=== PATIENT | male | born 1990 | race Caucasian/White ===

== ENCOUNTER 2017-12-23 06:49 | Emergency (ER) | payer BC ==
--- NOTE | 2017-12-23 06:55 | EDM.PDOC ---
ED HPI GENERAL MEDICAL PROBLEM - General Chief Complaint: General Stated Complaint: Right hand cramping, nausea, emesis Time Seen by Provider: 12/23/17 06:50 Source of Information: Reports: Patient. Denies: Old Records ([facility] chart/EMR) History Limitations: Reports: No Limitations - History of Present Illness INITIAL COMMENTS - FREE TEXT/NARRATIVE: The patient was brought to the emergency room via basic ambulance transport with sorter pricer giving the patient 4 baby aspirin chew and swallow, applying O2 with a nonrebreather mask, and performing an EKG prior to patient's arrival to this facility. At about 03:30 a.m. patient began experiencing some sudden onset hyperventilation, dizziness, and right hand cramping with some additional secondary nausea and 2 episodes of emesis prior to arrival. The patient has been drinking plenty of fluids and trying to lose weight over the last 6 months and is apparently taking 2 different types of unknown diet pills through his claims correspondence clerk. The patient denies any chest pain/pressure, heart flutter, dizziness, orthostasis, orthopnea, diaphoresis, paresthesias, recent decreased exercise tolerance, or any other anginal-type symptoms. No recent history of abdominal pain, heartburn, diarrhea, melena, gross hematochezia, or any food intolerance, including fatty foods, etc.. The patient also denies any recent fever, cough, wheezing, dyspnea, etc.. Onset: Today, Gradual Onset Date: 12/23/17 Onset Time: 03:30 Duration: Constant, Getting Worse Location: Reports: Upper Extremity, Right. Denies: Head, Face, Neck, Chest, Abdomen, Back, Pelvis, Upper Extremity, Left, Lower Extremity, Left, Lower Extremity, Right, Radiates to Quality: Reports: Other (Cramping) Severity: Severe Improves with: Reports: None Worsens with: Reports: None Context: Reports: Other (As above) Associated Symptoms: Reports: Nausea/Vomiting (As above). Denies: Confusion, Chest Pain, Cough, Diaphoresis, Fever/Chills, Headaches, Loss of Appetite, Seizure, Shortness of Breath, Syncope, Weakness Treatments LEAD APPLICATIONS DEVELOPER: Reports: Aspirin, EKG, Oxygen Right Hand Pain Score (Numeric/FACES): 10 (Patient relates 100/10) - Related Data Allergies Allergy/AdvReac Type Severity Reaction Status Date / Time No Known Allergies Allergy Verified 12/23/17 07:27 Home Meds: Home Meds . [No Known Home Meds] 12/23/17 [History] Past Medical History HEENT History: Reports: Impaired Vision, Other (See Below). Denies: Allergic Rhinitis, Cataract, Glaucoma, Hard of Hearing, Macular Degeneration, Otitis Media, Retinal Detachment Other HEENT History: Patient wears soft contact lenses and glasses Cardiovascular History: Reports: None. Denies: Afib, Aneurysm, Arrhythmia, Blood Clots/VTE/DVT, CAD, Heart Murmur, High Cholesterol, Hypertension, NH, Syncope Respiratory History: Reports: Asthma, Intubation, Previous, Sleep Apnea, Other ( See Below). Denies: Bronchitis, Recurrent, COPD, PE, Pneumonia, Recurrent, Pneumothorax Other Respiratory History: Patient with exercise-induced asthma with no current therapy. Sleep apnea with patient noncompliant with his CPAP Gastrointestinal History: Reports: Other (See Below). Denies: Celiac Disease, Cholelithiasis, Chronic Constipation, Chronic Diarrhea, Gastritis, GERD, GI Bleed, Hepatitis, Inflammatory Bowel Disease, Irritable Bowel Syndrome, Jaundice , Pancreatitis Other Gastrointestinal History: LFTs elevation likely secondary to fatty liver apparent previous negative workup through a specialist Genitourinary History: Reports: None. Denies: Acute Renal Failure, BPH, Chronic Renal Insuffiency, Renal Calculus, STD, Urinary Incontinence, UTI, Recurrent Musculoskeletal History: Reports: Arthritis, Back Pain, Chronic, Osteoarthritis. Denies: Amputation, Fracture, Gout, Neck Pain, Chronic, RA, SLE Neurological History: Reports: Headaches, Chronic. Denies: Cerebral Aneurysms, Concussion, CVA, Head Trauma, Migraines, MS, Neuropathy, Peripheral, Parkinson's , Seizure, TIA Psychiatric History: Reports: Addiction, Anxiety, Depression, Other (See Below) . Denies: Abuse, Victim of, ADD, ADHD, Psych Hospitalization(s), PTSD, Suicide Attempt, Suicidal Ideation Other Psychiatric History: Previous history of alcohol abuse and illicit drug use as below Endocrine/Metabolic History: Reports: Obesity/BMI 30+. Denies: Diabetes, Type I , Diabetes, Type II, Diabetes Mellitus, Type 3c, Hypothyroidism, IDDM Hematologic History: Reports: None. Denies: Anemia, Blood Transfusion(s), Iron Deficiency Immunologic History: Reports: None. Denies: AIDS, HIV, SLE Oncologic (Cancer) History: Reports: None. Denies: Basal Cell Carcinoma, Hodgkin's Lymphoma, Lymphoma, Malignant Melanoma, Non-Hodgkin's Lymphoma, Squamous Cell Carcinoma Dermatologic History: Reports: None. Denies: Eczema, Psoriasis - Infectious Disease History Infectious Disease History: Reports: Chicken Pox, MRSA (Recurrent MRSA/ cellulitis). Denies: C-Difficile, Measles, Meningitis, Mononucleosis, Mumps, Pertussis (Whooping Cough), Rheumatic Fever, Rubella, Scarlet Fever, Shingles, VRE - Past Surgical History Head Surgeries/Procedures: Reports: None HEENT Surgical History: Reports: None. Denies: Adenoidectomy, Eye Surgery, Laser Surgery, LASIK, Myringotomy w Tube(s), Naso-Sinus Surgery, Oral Surgery, Tonsillectomy Cardiovascular Surgical History: Reports: None. Denies: Varicose Respiratory Surgical History: Reports: None. Denies: Thoracentesis GI Surgical History: Reports: None. Denies: Appendectomy, Cholecystectomy, Colonoscopy, EGD, Hernia, Abdominal, Hernia, Inguinal, Hernia Repair/Other Male Surgical History: Reports: Circumcision, Other (See Below). Denies: Vasectomy Other Male Surgeries/Procedures: Circumcision as an Endocrine Surgical History: Reports: None. Denies: Thyroid Biopsy Neurological Surgical History: Reports: None. Denies: C-Spine, Discectomy, Laminectomy, Lumbar Spine, Sacral Spine, Spinal Fusion, Vertebroplasty Musculoskeletal Surgical History: Reports: None. Denies: Arthroscopic Procedure , Carpal Tunnel, Ganglion Cyst, Joint Replacement, ORIF, Shoulder Surgery Oncologic Surgical History: Reports: None Dermatological Surgical History: Reports: None - Past Imaging History Past Imaging History: Reports: Ultrasound (Abdominal ultrasound in 2017) Social & Family History - Tobacco Use Smoking Status *Q: Current Every Day Smoker Tobacco Use Within Last Twelve Months: Cigarettes, Snuff/Dip Years of Tobacco use: 14 Packs/Tins Daily: 1 Packs/Tins Daily Comment: The patient started using chewing tobacco and smoking cigarettes at age 13 with current cigarette use of one pack per day and maximum use of 2 packs per day. Patient stopped using chewing tobacco about one month ago with previous use of one half can per day. Used Tobacco, but Quit: No Smoking Cessation Information Provided To Patient: Yes Second Hand Smoke Exposure: Yes Source of Second Hand Smoke Exposure: Roommate smokes Second Hand Smoke Education Provided: Yes - Caffeine Use Caffeine Use: Reports: Soda (1 soda per week). Denies: Coffee, Energy Drinks, Tea - Alcohol Use Alcohol Use History: Yes Days Per Week of Alcohol Use: 0 (Previous history of alcohol abuse between ages 20 and 25) Number of Drinks Per Day: 3 (Beer, mixed drinks, and wine) Total Drinks Per Week: 0 - Recreational Drug Use Recreational Drug Use: Yes Drug Use in Last 12 Months: No Recreational Drug Type: Reports: Marijuana/Hashish (Daily use of marijuana between ages 11 and 19). Denies: Amphetamines (Speed), Cocaine, Dextromethorphan (Cough Syrup), Heroin, Inhalants (Glues, Solvents, Aerosols), LSD (Acid), Methamphetamine, Morphine, Oxycodone - Living Situation & Occupation Living situation: Reports: Single (2 children), Other (Roommate). Denies: Occupation: Employed ([employer]) ED ROS GENERAL - Review of Systems Review Of Systems: ROS reveals no pertinent complaints other than HPI. ED EXAM, GENERAL - Physical Exam Exam: See Below Exam Limited By: No Limitations General Appearance: Alert, WD/WN, Anxious (Moderate to severe), Mild Distress ( Secondary to hyperventilation and muscle cramping) Eye Exam: Bilateral Eye: EOMI, Normal Fundi, Normal Inspection (Contact lenses bilaterally. No nystagmus), PERRL Ears: Normal External Exam, Normal Canal, Hearing Grossly Normal, Normal TMs Nose: Normal Inspection, Normal Mucosa, No Blood, Clear Rhinorrhea Throat/Mouth: Normal Inspection, Normal Lips, Normal Teeth, Normal Gums, Normal Oropharynx, Normal Voice, No Airway Compromise. No: Dysphagia, Perioral Cyanosis Head: Atraumatic, Normocephalic. No: Facial Swelling, Facial Tenderness, Sinus Tenderness Neck: Normal Inspection, Supple, Non-Tender, Full Range of Motion. No: Carotid Bruit, Lymphadenopathy (L), Lymphadenopathy (R), Thyromegaly Respiratory/Chest: No Respiratory Distress, Lungs Clear, Normal Breath Sounds, No Accessory Muscle Use, Chest Non-Tender, Other (Moderate hyperventilation on arrival). No: Pleural Rub, Retractions Cardiovascular: Normal Peripheral Pulses, Regular Rate, Rhythm, No Edema, No Gallop, No JVD, No Murmur, No Rub. No: Gallop/S3, Gallop/S4, Friction Rub Peripheral Pulses: 2+: Radial (L), Radial (R), Dorsalis Pedis (L), Dorsalis Pedis (R) GI/Abdominal: Normal Bowel Sounds, Soft, Non-Tender, No Organomegaly, No Distention, No Abnormal Bruit, No Mass, Pelvis Stable, Other (Obese). No: Guarding (Male) Exam: Deferred Rectal (Males) Exam: Deferred Back Exam: Normal Inspection, Full Range of Motion. No: CVA Tenderness (L), CVA Tenderness (R), Muscle Spasm Extremities: Normal Inspection, Normal Range of Motion, Non-Tender, No Pedal Edema, Normal Capillary Refill. No: Alfie's Sign Neurological: Alert, Oriented, CN II-XII Intact, Normal Cognition, Normal Gait, Normal Reflexes (Negative Babinski's, finger to nose, and pronator rotation tests. No evidence of facial paresis, tongue deviation, orthostasis, etc.. Excellent reverse thought processes.), No Motor/Sensory Deficits Psychiatric: Anxious (Moderate to severe). No: Depressed Mood Skin Exam: Warm, Dry, Intact, Normal Color, No Rash, Tattoo(s) (Multiple). No: Diaphoretic, Wound/Incision Lymphatic: No Adenopathy EKG INTERPRETATION EKG Date: 12/23/17 Time: 06:35 Rhythm: Other (Sinus tachycardia) Rate (Beats/Min): 107 Pioneer: Normal (Neutral cardiac axis) P-Wave: Enlarged (Diffuse biphasic P wavesmild) QRS: Normal (QRS interval of 0.08 seconds with repolarization changes) ST-T: Normal QT: Normal NH/PQ Interval: 0.15 seconds Comparison: NA - No Prior EKG EKG Interpretation Comments: 1. No acute ischemic changes 2. Sinus tachycardia 3. Repolarization changes Note that this EKG was taken by sorter pricer prior to patient's arrival to this facility. Note V6-lead is absent. Course - Vital Signs Last Recorded V/S: Last Vital Signs Temp 37.2 C 12/23/17 07:03 Pulse 93 12/23/17 08:50 Resp 16 12/23/17 08:50 BP 128/72 12/23/17 08:50 Pulse Ox 99 12/23/17 08:50 Vital Signs - 24 hr 12/23/17 12/23/17 12/23/17 06:49 07:03 07:20 Temperature [ 37.2 C 37.2 C Temporal] Pulse, 92 97 95 Peripheral [ Right] Respiratory 16 16 16 Rate Blood Pressure 139/103 H 143/87 H [Right Upper Arm] O2 Sat by Pulse 100 100 100 Oximetry 12/23/17 08:50 Temperature [ Temporal] Pulse, 93 Peripheral [ Right] Respiratory 16 Rate Blood Pressure 128/72 [Right Upper Arm] O2 Sat by Pulse 99 Oximetry - Orders/Labs/Meds Orders: Active Orders 24 hr Category Date Time Status Cardiac Monitoring [RC] . DIRECTED Care 12/23/17 06:55 Active Abdomen Series w Chest 1V [CR] Stat Exams 12/23/17 06:59 Taken Obtain Past Medical Record [OM.PC] Routine Oth 12/23/17 06:59 Active Labs: Laboratory Tests 12/23/17 12/23/17 12/23/17 Range/Units 07:00 07:00 07:00 WBC 15.6 H (4.0-10.2) K/uL RBC 5.80 H (4.33-5.41) M/uL Hgb 17.5 H (13.1-16.8) g/dL Hct 49.2 H (39.0-49.0) % MCV 84.8 (84.0-98.0) fL MCH 30.2 (28.2-33.3) pg MCHC 35.6 (31.7-36.0) g/dL RDW 13.1 (11.2-14.1) % Plt Count 327 (150-350) K/uL Neut % (Auto) 83.8 H (45.0-80.0) % Lymph % (Auto) 9.8 L (10.0-50.0) % [place] % (Auto) 6.3 (2.0-14.0) % Eos % (Auto) 0.0 (0.0-5.0) % Baso % (Auto) 0.1 (0.0-2.0) % Neut # (Auto) 13.03 H (1.40-7.00) K/uL Lymph # (Auto) 1.53 (0.50-3.50) K/uL [place] # (Auto) 0.98 (0.00-1.00) K/uL Eos # (Auto) 0.00 (0.00-0.50) K/uL Baso # (Auto) 0.02 (0.00-0.20) K/uL PT (9.8-11.7) SEC INR APTT (22.1-29.8) SEC Sodium (136-145) mmol/L Potassium (3.5-5.1) mmol/L Chloride (98-107) mmol/L Carbon Dioxide (21.0-32.0) mmol/L BUN (7-18) mg/dL Creatinine (0.51-1.17) mg/dL Estimated GFR (MDRD) mL/min Glucose (74-106) mg/dL Hemoglobin A1c 5.1 (4.3-5.7) % Lactic Acid (0.4-2.0) mmol/L Uric Acid (2.6-7.2) mg/dL Calcium (8.5-10.1) mg/dL Magnesium (1.8-2.4) mg/dL Total Bilirubin (0.2-1.0) mg/dL AST (15-37) U/L ALT (12-78) U/L Alkaline Phosphatase (46-116) IU/L Total Protein (6.4-8.2) g/dL Albumin (3.4-5.0) g/dL Amylase (25-115) U/L Lipase (73-393) U/L TSH, Ultra Sensitive (0.358-3.740) mIU/mL 12/23/17 12/23/17 12/23/17 Range/Units 07:00 07:00 07:00 WBC (4.0-10.2) K/uL RBC (4.33-5.41) M/uL Hgb (13.1-16.8) g/dL Hct (39.0-49.0) % MCV (84.0-98.0) fL MCH (28.2-33.3) pg MCHC (31.7-36.0) g/dL RDW (11.2-14.1) % Plt Count (150-350) K/uL Neut % (Auto) (45.0-80.0) % Lymph % (Auto) (10.0-50.0) % [place] % (Auto) (2.0-14.0) % Eos % (Auto) (0.0-5.0) % Baso % (Auto) (0.0-2.0) % Neut # (Auto) (1.40-7.00) K/uL Lymph # (Auto) (0.50-3.50) K/uL [place] # (Auto) (0.00-1.00) K/uL Eos # (Auto) (0.00-0.50) K/uL Baso # (Auto) (0.00-0.20) K/uL PT 11.2 (9.8-11.7) SEC INR 1.0 APTT 27.3 (22.1-29.8) SEC Sodium (136-145) mmol/L Potassium (3.5-5.1) mmol/L Chloride (98-107) mmol/L Carbon Dioxide (21.0-32.0) mmol/L BUN (7-18) mg/dL Creatinine (0.51-1.17) mg/dL Estimated GFR (MDRD) mL/min Glucose (74-106) mg/dL Hemoglobin A1c (4.3-5.7) % Lactic Acid (0.4-2.0) mmol/L Uric Acid (2.6-7.2) mg/dL Calcium (8.5-10.1) mg/dL Magnesium (1.8-2.4) mg/dL Total Bilirubin (0.2-1.0) mg/dL AST (15-37) U/L ALT (12-78) U/L Alkaline Phosphatase (46-116) IU/L Total Protein (6.4-8.2) g/dL Albumin (3.4-5.0) g/dL Amylase (25-115) U/L Lipase (73-393) U/L TSH, Ultra Sensitive (0.358-3.740) mIU/mL Note secondary to equipment malfunction in this facility blood sample had to be sent to [place] for further analysis results obtained after the patient left the emergency room. Note borderline elevated sodium of 146, total protein 8.4, CO2 decreased to 17.4., And uric acid elevated to 7.6. Otherwise normal comprehensive metabolic panel. TSH, amylase, lipase, and magnesium were all normal. Lactic acid was mildly elevated to 2.8. Meds: Medications Discontinued Medications Generic Name Dose Route Start Last Admin Trade Name Shefali PRN Reason Stop Dose Admin Lorazepam 1 mg 12/23/17 06:58 12/23/17 07:27 Ativan IVPUSH 12/23/17 06:59 1 mg ONETIME ONE Administration - Radiology Interpretation Free Text/Narrative:: environmental engineering professor showed initial mild sinus tachycardia in the 110s with subsequent normal sinus rhythm in the 90s with no ectopy or arrhythmia Acute abdominal x-ray showed moderate diffuse stool with nonspecific bowel gaseous pattern however no free air, fluid levels, ileus, obstruction, etc. Evidence of pulmonary obstructive disease with no cardiomegaly, CHF, pulmonary infiltrates, pneumothorax, etc. Departure - Departure Time of Disposition: 09:30 Disposition: Home, Self-Care 01 Condition: Good Clinical Impression: Hyperventilation, Mixed anxiety depressive disorder, Polycythemia, Tobacco abuse counseling, Hyperuricemia, Lactic acid increased Sleep apnea Qualifiers: Sleep apnea type: unspecified type Qualified Code(s): G47.30 - Sleep apnea, unspecified Obesity Qualifiers: Obesity type: due to excess calories Obesity classification: unspecified obesity classification Serious obesity comorbidity presence: without serious comorbidity Qualified Code(s): E66.09 - Other obesity due to excess calories Osteoarthritis Qualifiers: Osteoarthritis location: multiple joints Osteoarthritis type: primary Qualified Code(s): M15.0 - Primary generalized (osteo)arthritis Leukocytosis Qualifiers: Leukocytosis type: bandemia Qualified Code(s): D72.825 - Bandemia Asthma Qualifiers: Asthma severity: mild Asthma persistence: intermittent Asthma complication type : uncomplicated Qualified Code(s): J45.20 - Mild intermittent asthma, uncomplicated - Discharge Information Instructions: Hyperventilation, Lorazepam injection Referrals: Raul Farrar MD [Primary Care Provider] - Forms: ED Department Discharge Additional Instructions: 1. Follow-up with your regular provider in 1-3 days for reevaluation and recommended repeat CBC, comprehensive metabolic panel, and fasting lipid profile ( fasting for at least 9 hours) 2. Sedation precautions with no driving, etc. for 12 hours because of emergency room medications. 3. [place] diet including encouragement of oral fluids such as sports drinks, etc. for 24-48 hours as directed. Advance to low-fat, low-cholesterol diet as tolerated thereafter. 4. Work excuse- See Form 5. Stop all tobacco use ELVI as directed/per provided information and consider contacting Quit LIne, etc.. Congratulations about stopping chewing tobacco use 6. Continue weight loss and exercise in moderation, however discontinue your diet pills immediately 7. Compliance with your CPAP is strongly encouraged as discussed 8. [place] diet including encouragement of oral fluids such as sports drinks, etc. for 24-48 hours as directed. Advance to regular diet as tolerated thereafter. 9. Tylenol 650 mg by mouth every 4 hours and/or OTC ibuprofen 2-3 tabs by mouth every 6 hours with food as directed./needed. - Problem List & Annotations (1) Hyperventilation SNOMED Code(s): 45826827 Code(s): R06.4 - HYPERVENTILATION Status: Acute Priority: High Onset Date: 12/23/17 Annotation/Comment:: Previous history of hyperventilation, however note anxiety component as above/below. Patient was given a paper bag to breathe into with some improvement in symptoms, however subsequent IV Ativan was required. Note some leukocytosis and nonspecific nausea/emesis without true abdominal pain secondary to the above hyperventilation, etc. Despite low-grade fever no true evidence of infection with repeat CBC and close follow-up by his regular provider as per discharge instructions (2) Leukocytosis SNOMED Code(s): 135975589, 337980354 Code(s): D72.829 - ELEVATED WHITE BLOOD CELL COUNT, UNSPECIFIED Status: Acute Priority: High Onset Date: 12/23/17 Annotation/Comment:: As above Qualifiers: Leukocytosis type: bandemia Qualified Code(s): D72.825 - Bandemia (3) Mixed anxiety depressive disorder SNOMED Code(s): 368518068 Code(s): F41.8 - OTHER SPECIFIED ANXIETY DISORDERS Status: Chronic Priority: High Annotation/Comment:: As above. Close follow-up by regular provider. Consider medical therapy, etc. depending on his clinical course (4) Obesity SNOMED Code(s): 166841906, 663147856 Code(s): E66.9 - OBESITY, UNSPECIFIED Status: Chronic Priority: Medium Annotation/Comment:: Continue exercise and weight loss in moderation. Diet pills are to be discontinued Qualifiers: Obesity type: due to excess calories Obesity classification: unspecified obesity classification Serious obesity comorbidity presence: without serious comorbidity Qualified Code(s): E66.09 - Other obesity due to excess calories (5) Osteoarthritis SNOMED Code(s): 954750984 Code(s): M19.90 - UNSPECIFIED OSTEOARTHRITIS, UNSPECIFIED SITE Status: Chronic Priority: Medium Annotation/Comment:: Stable by history Qualifiers: Osteoarthritis location: multiple joints Osteoarthritis type: primary Qualified Code(s): M15.0 - Primary generalized (osteo)arthritis (6) Polycythemia SNOMED Code(s): 913696960 Code(s): D75.1 - SECONDARY POLYCYTHEMIA Status: Acute Priority: Medium Onset Date: 12/23/17 Annotation/Comment:: Likely secondary to sleep apnea. Continue to observe closely by his regular provider (7) Sleep apnea SNOMED Code(s): 57936186 Code(s): G47.30 - SLEEP APNEA, UNSPECIFIED Status: Chronic Priority: Medium Annotation/Comment:: Patient noncompliant with his CPAP with compliance encouraged. He has apparently attempted several different types of masks in the past and is not receptive to this at this time. Qualifiers: Sleep apnea type: unspecified type Qualified Code(s): G47.30 - Sleep apnea , unspecified (8) Tobacco abuse counseling SNOMED Code(s): 735984227, 331433245, 519923036 Code(s): Z71.6 - TOBACCO ABUSE COUNSELING Status: Chronic Priority: Medium Annotation/Comment:: Continued tobacco cessation strongly encouraged with information provided at discharge (9) Asthma SNOMED Code(s): 466496769 Code(s): J45.909 - UNSPECIFIED ASTHMA, UNCOMPLICATED Status: Chronic Priority: Medium Annotation/Comment:: Nonproblematic at this time with no arthritic type symptoms or current medical therapy Qualifiers: Asthma severity: mild Asthma persistence: intermittent Asthma complication type: uncomplicated Qualified Code(s): J45.20 - Mild intermittent asthma, uncomplicated (10) Hyperuricemia SNOMED Code(s): 85815318 Code(s): E79.0 - HYPERURICEMIA W/O SIGNS OF INFLAM ARTHRIT AND TOPHACEOUS DIS Status: Acute Priority: Medium Onset Date: 12/23/17 Annotation/ Comment:: Newly diagnosed. No history of gout attacks or current symptoms. See telephone consultation/addendum as above (11) Lactic acid increased SNOMED Code(s): 21787935 Code(s): E87.2 - ACIDOSIS Status: Acute Priority: High Onset Date: Annotation/Comment:: Probably secondary to hyperventilation as above. No evidence of sepsis. See telephone consultation/addendum as above - Problem List Review Problem List Initiated/Reviewed/Updated: Yes - My Orders Last 24 Hours: My Active Orders 12/23/17 06:55 Cardiac Monitoring [RC] . DIRECTED 12/23/17 06:59 Abdomen Series w Chest 1V [CR] Stat Obtain Past Medical Record [OM.PC] Routine - Assessment/Plan Last 24 Hours: My Active Orders 12/23/17 06:55 Cardiac Monitoring [RC] . DIRECTED 12/23/17 06:59 Abdomen Series w Chest 1V [CR] Stat Obtain Past Medical Record [OM.PC] Routine Assessment:: As above Plan: As above. Extensive precautions were given to the patient, who is in agreement with the treatment plan. See Patient Instructions for further treatment and plan.
[2017-12-23] MEDS ORDERED: LORazepam 2 MG/ML SDV IVPUSH ONE (06:58)
[2017-12-23 08:51] VITALS: BP 128/72
== END 2017-12-23 09:55 | disposition home or self-care (01) ==
LOC: LL.ED 06:49 → MERGE 06:49 → LL.ED 09:55
DX: R06.4 Hyperventilation (principal); F41.8 Other specified anxiety disorders; D75.1 Secondary polycythemia; E79.0 Hyperuricemia without signs of inflammatory arthritis and tophaceous disease; R79.89 Other specified abnormal findings of blood chemistry; G47.30 Sleep apnea, unspecified; E66.09 Other obesity due to excess calories; M15.0 Primary generalized (osteo)arthritis; J45.20 Mild intermittent asthma, uncomplicated; F17.210 Nicotine dependence, cigarettes, uncomplicated; Z71.6 Tobacco abuse counseling
CPT/HCPCS: 36415; 74022; 80053; 82150; 83036; 83605; 83690; 83735; 84443; 84550; 85025; 85610; 85730; 96374; 99285; J2060

== ENCOUNTER 2018-01-07 14:03 | Emergency (ER) | payer BC ==
[2018-01-07 14:10] VITALS: BP 101/77
[2018-01-07] MEDS ORDERED: Diazepam 5 MG Tab PO ONE (14:33)
[2018-01-07] MEDS ORDERED: Ketorolac 10 MG Tab PO ONE (14:33)
[2018-01-07] MEDS ORDERED: Acetaminophen/oxyCODONE 325-5 MG Tab PO ONE (14:34)
--- NOTE | 2018-01-07 16:49 | EDM.PDOC ---
ED HPI GENERAL MEDICAL PROBLEM - General Chief Complaint: Upper Extremity Injury/Pain Stated Complaint: shoulder pain Time Seen by Provider: 01/07/18 14:33 Source of Information: Reports: Patient History Limitations: Reports: No Limitations - History of Present Illness INITIAL COMMENTS - FREE TEXT/NARRATIVE: Patient comes to ER complaining of right sided neck and shoulder pain after falling off 2 foot high ladder. Fell onto shoulder. No numbness/tingling of any kind but has pain in area of right shoulder that includes right neck. No known LOC. Able to ambulate. Cannot raise right shoulder. Denies other complaints. - Related Data Allergies Allergy/AdvReac Type Severity Reaction Status Date / Time No Known Allergies Allergy Verified 01/07/18 14:49 Home Meds: Home Meds Cyclobenzaprine [Flexeril] 10 mg PO TID PRN #10 tab 01/07/18 [Rx] oxyCODONE HCl/Acetaminophen [Percocet 5-325 mg Tablet] 1 each PO ASDIRECTED #20 tablet 01/07/18 [Rx] Past Medical History - Past Health History Medical/Surgical History: Denies Medical/Surgical History HEENT History: Reports: Impaired Vision, Other (See Below) Other HEENT History: Patient wears soft contact lenses and glasses Cardiovascular History: Reports: None Respiratory History: Reports: Asthma, Intubation, Previous, Other (See Below), Sleep Apnea Other Respiratory History: Patient with exercise-induced asthma with no current therapy. Sleep apnea with patient noncompliant with his CPAP Gastrointestinal History: Reports: Other (See Below) Other Gastrointestinal History: LFTs elevation likely secondary to fatty liver apparent previous negative workup through a specialist Genitourinary History: Reports: None, Other (See Below) Other Genitourinary History: microscopic hematuria Musculoskeletal History: Reports: Arthritis, Back Pain, Chronic, Other (See Below), Osteoarthritis Other Musculoskeletal History: ankle sprain Neurological History: Reports: Headaches, Chronic, None Psychiatric History: Reports: Addiction, Anxiety, Depression, None, Other (See Below) Other Psychiatric History: Previous history of alcohol abuse and illicit drug use as below Endocrine/Metabolic History: Reports: None, Obesity/BMI 30+ Hematologic History: Reports: None Immunologic History: Reports: None Oncologic (Cancer) History: Reports: None Dermatologic History: Reports: None - Infectious Disease History Infectious Disease History: Reports: Chicken Pox, MRSA - Past Surgical History Head Surgeries/Procedures: Reports: None HEENT Surgical History: Reports: None Cardiovascular Surgical History: Reports: None GI Surgical History: Reports: None Oncologic Surgical History: Reports: None Dermatological Surgical History: Reports: None - Past Imaging History Past Imaging History: Reports: Ultrasound (Abdominal ultrasound in 2017) Social & Family History - Family History Family Medical History: Noncontributory - Tobacco Use Smoking Status *Q: Current Every Day Smoker Years of Tobacco use: 14 Packs/Tins Daily: 1 Used Tobacco, but Quit: No Month/Year Tobacco Last Used: 08/2015 Second Hand Smoke Exposure: Yes - Caffeine Use Caffeine Use: Reports: Soda - Alcohol Use Days Per Week of Alcohol Use: 0 (Previous history of alcohol abuse between ages 20 and 25) Number of Drinks Per Day: 3 Total Drinks Per Week: 0 - Recreational Drug Use Recreational Drug Use: Yes Drug Use in Last 12 Months: No Recreational Drug Type: Reports: Marijuana/Hashish - Living Situation & Occupation Living situation: Reports: Other, Single Occupation: Employed ([employer]) Review of Systems - Review of Systems Review Of Systems: See Below Constitutional: Reports: No Symptoms Eyes: Reports: No Symptoms. Denies: Tunnel Vision, Vision Change Ears: Reports: No Symptoms Nose: Reports: No Symptoms. Denies: Pain Mouth/Throat: Reports: No Symptoms. Denies: Lip Swelling, Tongue Swelling, Loose Teeth, Pain Respiratory: Reports: No Symptoms. Denies: Pleuritic Chest Pain Cardiovascular: Reports: No Symptoms. Denies: Chest Pain, Lightheadedness GI/Abdominal: Reports: No Symptoms Genitourinary: Reports: No Symptoms Musculoskeletal: Reports: Neck Pain, Shoulder Pain. Denies: Arm Pain, Back Pain , Hand Pain, Leg Pain, Foot Pain, Joint Swelling Skin: Reports: No Symptoms Neurological: Reports: No Symptoms Psychiatric: Reports: No Symptoms ED EXAM, GENERAL - Physical Exam Exam: See Below Exam Limited By: Physical Impairment (refuses to move right shoulder due to pain ) General Appearance: Alert, WD/WN, Other (uncomfortable) Eye Exam: Bilateral Eye: EOMI, PERRL Ears: Normal External Exam, Normal Canal Nose: No: Nasal Tenderness, Nasal Deformity, Nasal Swelling, Nasal Drainage Throat/Mouth: Normal Inspection, Normal Voice, No Airway Compromise, Other (no signs of trauma) Head: Atraumatic, Normocephalic Neck: Supple, Tender Lateral (right neck and near C6/7 posteriorly), Tender Midline (lower cervical area) Respiratory/Chest: No Respiratory Distress, Lungs Clear, Normal Breath Sounds, No Accessory Muscle Use, Other (Tender with palpation along clavicle/shoulder joint) Cardiovascular: Normal Peripheral Pulses, Regular Rate, Rhythm, No Murmur Peripheral Pulses: 2+: Radial (L), Radial (R) GI/Abdominal: Normal Bowel Sounds, Soft, Non-Tender, No Distention (Male) Exam: Deferred Rectal (Males) Exam: Deferred Back Exam: No: CVA Tenderness (L), CVA Tenderness (R) Extremities: No Pedal Edema, Normal Capillary Refill, Other (Pain in right shoulder/along anterior rotator cuff with palpation and will passive ROM. ) Neurological: Alert, Oriented, CN II-XII Intact, Normal Cognition, Normal Gait, Unresponsive, Other (No focal neuro deficits identified. ) Psychiatric: Normal Affect, Normal Mood Skin Exam: Warm, Dry, Intact, Normal Color. No: Diaphoretic, Erythema Course - Vital Signs Last Recorded V/S: Last Vital Signs Temp 37.0 C 01/07/18 14:08 Pulse 86 01/07/18 14:08 Resp 16 01/07/18 14:08 BP 101/77 01/07/18 14:08 Pulse Ox 97 01/07/18 14:08 - Orders/Labs/Meds Orders: Active Orders 24 hr Category Date Time Status C-Spine [Cervical Spine 2V or 3V] [CR] Stat Exams 01/07/18 14:15 Taken Cervical Spine wo Cont [CT] Stat Exams 01/07/18 15:45 Taken Shoulder Comp Rt [CR] Stat Exams 01/07/18 14:20 Taken Meds: Medications Discontinued Medications Generic Name Dose Route Start Last Admin Trade Name Freq PRN Reason Stop Dose Admin Diazepam 5 mg 01/07/18 14:33 01/07/18 14:48 Valium. PO 01/07/18 14:34 5 mg ONETIME ONE Administration Ketorolac Tromethamine 10 mg 01/07/18 14:33 01/07/18 14:48 Toradol PO 01/07/18 14:34 10 mg ONETIME ONE Administration Oxycodone/Acetaminophen 2 tab 01/07/18 14:34 01/07/18 14:47 Percocet 325-5 Mg PO 01/07/18 14:35 2 tab ONETIME ONE Administration Prednisone 40 mg 01/07/18 17:00 01/07/18 17:06 Prednisone PO 01/07/18 17:01 40 mg ONETIME ONE Administration - Radiology Interpretation Free Text/Narrative:: plain films of neck/right shoulder requested. Later CT of neck added. Patient refused IM medications. Given oral pain meds. Improvement noted afterwards. Overall no specific focal findings noted by Radiology except for reversal of normal curve of neck. Shoulder immobilizer fitted to patient. Plan at this time is to keep him off work until he can follow up with Ortho walk in clinic wednesday in [place]. Precautions reviewed, especially in regards to using Flexeril and Percocet. Patient is in agreement with plan. He is aware that he may need MRI of shoulder. He does have increased point tenderness around anterior AC joint which may indicate AC injury. He is to followup in ER as needed if sudden worsening is noted. Departure - Departure Time of Disposition: 16:44 Disposition: Home, Self-Care 01 Condition: Good Clinical Impression: Right shoulder injury Qualifiers: Encounter type: initial encounter Qualified Code(s): S49.91XA - Unspecified injury of right shoulder and upper arm, initial encounter Neck strain Qualifiers: Encounter type: initial encounter Qualified Code(s): S16.1XXA - Strain of muscle, fascia and tendon at neck level, initial encounter - Discharge Information Prescriptions: Cyclobenzaprine [Flexeril] 10 mg PO TID PRN #10 tab PRN Reason: Spasms oxyCODONE HCl/Acetaminophen [Percocet 5-325 mg Tablet] 1 each PO ASDIRECTED #20 tablet Instructions: How to Use a Shoulder Immobilizer Referrals: PCP,None [Primary Care Provider] - Forms: ED Department Discharge Additional Instructions: Follow up Wednesday at Ortho walk-in clinic at [place]. Show up early for best appointment. Rest over weekend. Sleeping in recliner may be more comfortable on shoulder. OK to take Aleve or Ibuprofen. You may take the Flexeril for muscle spasm. You may take regular Tylenol OR the Percocet for pain. Do not take both at same time. Do not take the Flexeril or Percocet more often than prescribed as they are both sedating and make you tired. Do not use alcohol while on these meds as that is a dangerous combination. OK to ice the shoulder for comfort. Wear immobilizer to help with pain. - My Orders Last 24 Hours: My Active Orders 01/07/18 14:15 C-Spine [Cervical Spine 2V or 3V] [CR] Stat 01/07/18 14:20 Shoulder Comp Rt [CR] Stat 01/07/18 15:45 Cervical Spine wo Cont [CT] Stat - Assessment/Plan Last 24 Hours: My Active Orders 01/07/18 14:15 C-Spine [Cervical Spine 2V or 3V] [CR] Stat 01/07/18 14:20 Shoulder Comp Rt [CR] Stat 01/07/18 15:45 Cervical Spine wo Cont [CT] Stat
[2018-01-07] MEDS ORDERED: predniSONE 20 MG Tab PO ONE (17:00)
== END 2018-01-07 17:05 | disposition home or self-care (01) ==
LOC: LL.ED 14:03
DX: S16.1XXA Strain of muscle, fascia and tendon at neck level, initial encounter (principal); S49.91XA Unspecified injury of right shoulder and upper arm, initial encounter; F17.210 Nicotine dependence, cigarettes, uncomplicated; W11.XXXA Fall on and from ladder, initial encounter
CPT/HCPCS: 72040; 72125; 73030-RT; 99284; A9270-GY